=== PATIENT | female | born 1930 | race Caucasian/White ===

== ENCOUNTER 2017-04-30 22:11 | Emergency (ER) | payer OTHER ==
[~2017-04-30] VITALS: Ht 162.6 cm; Wt 64.9 kg
--- NOTE | 2017-04-30 22:20 | NUR ---
CHASE [id number] FOR LACERATION RIGHT FOREARM S/P GLF. NO KO. PATIENT IS AAOX2, NAD NOTED. VSS. NONDIAPHORETIC. SAFETY AND COMFORT MEASURES RENDERED. AWAITING FOR ER MD COTA.
--- NOTE | 2017-04-30 22:30 | NUR ---
initial wound care done. Noted with 14cm length skin tear on the right forearm.
[2017-04-30] MEDS ORDERED: TDAP [DIPH/PERTUSSIS/TET] 0.5 ML VIAL IM ONE ×2 (23:21→23:30)
[2017-04-30 23:31] LABS: BASOPHILS # (AUTO) 0.1 /CMM (0.0-0.2); BASOPHILS % (AUTO) 0.8 % (0.0-2.0); EOSINOPHILS # (AUTO) 0.4 /CMM (0.0-0.7); EOSINOPHILS % (AUTO) 3.2 % (0.0-6.0); HEMATOCRIT 39 % (33-45); HEMOGLOBIN 12.4 g/dL (11.5-14.8); LYMPHOCYTES # (AUTO) 3.3 /CMM (0.8-4.8); LYMPHOCYTES % (AUTO) 27.8 % (20.0-44.0); MEAN CORPUSCULAR HEMOGLOBIN 29 PG (26.0-33.0); MEAN CORPUSCULAR HGB CONC 32 g/dl (31.0-36.0); MEAN CORPUSCULAR VOLUME 91 fL (82-100); MONOCYTES # (AUTO) 0.6 /CMM (0.1-1.30); MONOCYTES % (AUTO) 5.4 % (2.0-12.0); NEUTROPHILS # (AUTO) 7.4 /CMM (1.8-8.9); NEUTROPHILS % (AUTO) 62.8 % (43.0-81.0); PLATELET COUNT (AUTO) 335 /CMM (150-450); RDW COEFFICIENT OF VARIATION 16.6 (11.5-15.0); RED BLOOD CELL COUNT(AUTO) 4.24 MIL/uL (4.0-5.2); WHITE BLOOD COUNT (AUTO) 11.7 K/uL (4.3-11.0)
[2017-04-30 23:41] LABS: CARBON DIOXIDE 27 mmol/L (21-32); CHLORIDE 107 mmol/L (98-107); CREATININE 1.4 mg/dL (0.6-1.3); GLUCOSE 140 mg/dL (74-106); POTASSIUM 3.4 mmol/L (3.5-5.1); SODIUM SERUM 144 mmol/L (136-145); UREA NITROGEN, BLOOD 36 mg/dL (7-18)
[2017-05-01] MEDS ORDERED: POTASSIUM CHLORIDE 10 MEQ TABLET.SA ONE (01:57)
[2017-05-01] MEDS ORDERED: POTASSIUM CHLORIDE 10 MEQ TABLET.SA PO ONE (02:00)
--- NOTE | 2017-05-01 02:20 | NUR ---
SRINIVAS EDWARDS SPOKE WITH SAMUEL FROM [facility] [place] HE PHONE AND WAS UPDATED WITH POC.
--- NOTE | 2017-05-01 02:29 | NUR ---
XR AT BEDSIDE.
--- NOTE | 2017-05-01 02:37 | NUR ---
REPORT GIVEN TO AUGUSTINA OF THE [facility] AT [facility].
--- NOTE | 2017-05-01 02:56 | NUR ---
Spoke to Sridevi Alvarez [facility], notified for discharge status and to arrange for ambulance pickle solution maker.
[2017-05-01] MEDS ORDERED: CLONIDINE HCL 0.1 MG TABLET ONE (04:20)
--- NOTE | 2017-05-01 04:23 | NUR ---
RECEIVED CALL FROM [facility]. AMBULANCE ETA: 60 MINS
[2017-05-01] MEDS ORDERED: CLONIDINE HCL 0.1 MG TABLET PO ONE (04:30)
--- NOTE | 2017-05-01 05:46 | NUR ---
Endorsed care to ambulance crew for transport. Patient remained alert and responsive. VSS. Dressing on the right forearm clean, intact and no s/s of bleeding. No further complaints.
[2017-05-01 05:47] VITALS: BP 154/72
== END 2017-05-01 05:48 ==
LOC: ER 22:13
DX: S51.811A Laceration without foreign body of right forearm, initial encounter (principal); E87.6 Hypokalemia; E03.9 Hypothyroidism, unspecified; I12.9 Hypertensive chronic kidney disease with stage 1 through stage 4 chronic kidney disease, or unspecified chronic kidney disease; F03.90 Unspecified dementia, unspecified severity, without behavioral disturbance, psychotic disturbance, mood disturbance, and anxiety; E11.22 Type 2 diabetes mellitus with diabetic chronic kidney disease; I48.91 Unspecified atrial fibrillation; M81.0 Age-related osteoporosis without current pathological fracture; N18.9 Chronic kidney disease, unspecified; Z23 Encounter for immunization; Z88.2 Allergy status to sulfonamides; Z88.8 Allergy status to other drugs, medicaments and biological substances; W18.39XA Other fall on same level, initial encounter; Y93.89 Activity, other specified; Y92.89 Other specified places as the place of occurrence of the external cause; Y99.9 Unspecified external cause status
CPT/HCPCS: 36415; 73090-TC; 80048-TC; 85025-TC; 90715; A4606; A6402; Z7610